=== PATIENT | female | born 1975 ===

== ENCOUNTER 2024-01-07 07:19 | Emergency (ER) | payer SELFPAY ==
[2024-01-07] MEDS: Sodium Chloride 0.9% 1,000 ML IV ONE (08:03)
[2024-01-07] MEDS: Meclizine 25 MG Tab PO ONE (08:03)
[2024-01-07] MEDS: Sodium Chloride 0.9% 10 ML Syringe FLUSH PRN ×2 (08:04)
[2024-01-07] MEDS: Iopamidol 755 Mg/ML 100 ML Bottle IVPUSH ONE (08:12)
[2024-01-07] MEDS: Sodium Chloride 0.9% 100 ML IV SCH (08:12)
[2024-01-07 08:55] LABS: BASOPHILS PERCENT AUTO 1.1 % (0.0-1.0); EOSINOPHILS ABSOLUTE AUTO 0.1 K/mm3 (0.0-0.4); EOSINOPHILS PERCENT AUTO 1.3 % (0.0-6.0); HEMATOCRIT 34.1 % (37.0-47.0); HEMOGLOBIN 11.4 gm/dl (12.0-16.0); IMMATURE GRAN ABSOLUTE AUTO 0.01 K/mm3 (0.00-0.05); IMMATURE GRAN PERCENT AUTO 0.3 % (0.0-0.4); LYMPHOCYTES ABSOLUTE AUTO 1.6 K/mm3 (1.0-4.8); LYMPHOCYTES PERCENT AUTO 43.2 % (24.0-44.0); MEAN CORPUSCULAR HGB CONC 33.4 g/dl (32.0-36.0); MEAN CORPUSCULAR VOLUME 92.7 fl (83.0-99.0); MEAN PLATELET VOLUME 9.9 fl (9.4-12.3); MONOCYTES ABSOLUTE AUTO 0.4 K/mm3 (0.0-0.8); MONOCYTES PERCENT AUTO 9.6 % (0.0-8.0); NEUTROPHILS ABSOLUTE AUTO 1.7 K/mm3 (1.8-7.7); NEUTROPHILS PERCENT AUTO 44.5 % (41.0-71.0); PLATELET COUNT,PLT 274 K/mm3 (150-400); RED BLOOD CELL COUNT 3.68 M/mm3 (4.10-5.30); WHITE BLOOD CELL COUNT,WBC 3.75 K/mm3 (3.9-11.3)
[2024-01-07 09:17] LABS: ALBUMIN 3.4 g/dl (3.4-5.0); ANION GAP 12.8 (5-15); BUN/CREATININE RATIO 18.3 (14-18); CALCIUM 8.3 mg/dL (8.5-10.1); CREATININE 0.6 mg/dL (0.55-1.02); EST CRCL DRUG DOSING (CG) 97.22 mL/min; POTASSIUM,K 3.8 mEq/L (3.5-5.1); PROTEIN TOTAL,TP 5.8 g/dl (6.4-8.2)
[2024-01-07 09:18] LABS: A/G RATIO 1.4 (1-2); BILIRUBIN TOTAL 0.4 mg/dL (0.2-1.0)
[2024-01-07] MEDS: Ketorolac 15 MG/ML SDV IVPUSH ONE (10:24)
[2024-01-07 10:42] LABS: APPEARANCE,URINE CLEAR (Clear); BILIRUBIN,URINE NEGATIVE (Negative); COLOR,URINE LIGHT YELLOW (Yellow); GLUCOSE,URINE NEGATIVE (Negative); KETONES,URINE NEGATIVE (Negative); LEUKOCYTE ESTERASE,URINE NEGATIVE (Negative); NITRITE,URINE NEGATIVE (Negative); OCCULT BLOOD,URINE NEGATIVE (Negative); PROTEIN,URINE NEGATIVE (Negative); UROBILINOGEN,URINE 0.2 (0.2-1.0)
== END 2024-01-07 13:35 | disposition home or self-care (01) ==
LOC: JD.ED 07:19
DX: R42 Dizziness and giddiness (principal); Z79.899 Other long term (current) drug therapy
CPT/HCPCS: 36415; 70450; 70496; 70498; 80053; 81003; 82947; 84703; 85025; 93005; 96361; 96374; 99284; A9270; J1885; J3490; J7030; Q9967; 93010